=== PATIENT | male | born 1975 | race Caucasian/White ===

== ENCOUNTER 2023-09-12 00:20 | Emergency (ER) | payer MEDICAID ==
[~2023-09-12] VITALS: Ht 162.6 cm; Wt 81.6 kg
[2023-09-12 00:38] VITALS: BP 153/76; PULSE 97; RESP 20; TEMP 98.8; O2SAT 95
[2023-09-12 02:47] VITALS: O2SAT 97
[2023-09-12 02:55] VITALS: O2SAT 97
[2023-09-12] MEDS ORDERED: ACET-8905 PO (04:03)
[2023-09-12] MEDS ORDERED: AMOX1TAB8 PO (04:03)
[2023-09-12] MEDS ORDERED: OFLO5SOL27 LEFT EAR (04:03)
[2023-09-12] MEDS ORDERED: NAPR-337 PO (04:03)
[2023-09-12] MEDS ORDERED: cefTRIAXone 1,000 MG VIAL ONE (04:08)
[2023-09-12] MEDS ORDERED: LIDOCAINE MPF 1% 5 ML ONE (04:08)
[2023-09-12] MEDS: cefTRIAXone 1,000 MG in LIDOCAINE MPF 1% 2.1 ML IM ONE (04:18)
[2023-09-12] MEDS: KETOROLAC 30 MG/ML VIAL IM ONE (04:19)
== END 2023-09-12 04:18 | disposition home or self-care (01) ==
LOC: MED 00:20
DX: H60.502 Unspecified acute noninfective otitis externa, left ear (principal); Z79.1 Long term (current) use of non-steroidal anti-inflammatories (NSAID); Z79.2 Long term (current) use of antibiotics; Z79.899 Other long term (current) drug therapy; Z98.890 Other specified postprocedural states
CPT/HCPCS: 96372; 99284; J0696; J1885; J2001